=== PATIENT | male | born 1975 | race African-American/Black ===

== ENCOUNTER 2016-07-21 03:30 | Emergency (ER) | payer OTHER ==
[~2016-07-21] VITALS: Ht 182.9 cm; Wt 117.9 kg
[~2016-07-21 03:30] MED LIST: ACETAMINOPHEN325 M1 PO; ALBUTEROL INHAL17 GM IH; ALTACE5 M1 PO; AMLODIPINE BESY10 MG PO; AMOXICILLIN500 M1 PO; ASPIRIN EC81 M1 PO; ATIVAN1 MG PO; BACTRIM DS TAB1 EACH PO; CARVEDILOL3.125 MG; CEFDINIR300 MG PO; CIPROFLOXACIN500 M1 PO; CLARITIN10 MG; CLONIDINE HCL0.2 M2 PO; COLACE100 MG PO; COZAAR 50 MG TA50 M2 PO; DIPHENHYDRAMINE50 MG; FLEXERIL PO; HYDRALAZINE 2525 M1 PO; HYDRALAZINE 2525 MG PO; HYDROCHLOROTH12.5 MG PO; HYDROCHLOROTHIA25 M1 PO; IBUPROFEN 800800 M1 PO; IBUPROFEN 800800 MG PO; LISINOPRIL10 MG PO; LISINOPRIL20 MG; LISINOPRIL5 MG PO; LOPERAMIDE 2 MG2 M1 PO; LOPRESSOR100 M1 PO; LOPRESSOR50 PO; LORTABELXR PO; LOSARTAN POTAS100 MG PO; MECLIZINE 25 MG25 M1 PO; MUCINEX600 MG PO; NORCO 5-325 TA1 EACH PO; NORVASC 5 MG TAB5 MG PO; NORVASC10 MG PO; PENICILLIN VK500 MG PO; PHENADOZ25 MG RC; PREDNISONE 20 M20 MG PO; PREVACID 30MG C30 M1 PO; PROVENTIL HFA6.7 G1 INH; PYRIDIUM200 MG PO; RONDEC-DM SYRU120 ML PO; SALINE NASAL SP30 ML NS; TESSALON PERLE100 MG PO; TOPROL XL100 MG PO; TOPROL XL50 MG PO; VENTOLIN HFA 1818 GM INH; ZESTRIL20 MG PO; ZOCOR20 MG PO; ZOFRAN ODT4 MG PO; ZPAK PO; ZYRTEC10 M2 PO; [UNRECOGNIZED DRUG - REMARK]
[2016-07-21] MEDS ORDERED: AMOXICILLIN875 MG PO (04:36)
[2016-07-21] MEDS ORDERED: TRAMADOL 50 MG50 MG PO (04:36)
[2016-07-21 05:21] VITALS: BP 138/82
== END 2016-07-21 05:22 | disposition home or self-care (01) ==
LOC: ER 03:30
DX: J20.9 Acute bronchitis, unspecified (principal); K02.9 Dental caries, unspecified; I10 Essential (primary) hypertension; Z88.6 Allergy status to analgesic agent

== ENCOUNTER 2016-09-28 20:15 | Emergency (ER) | payer OTHER ==
[~2016-09-28] VITALS: Ht 182.9 cm; Wt 131.5 kg
[~2016-09-28 20:15] MED LIST changes: +AMOXICILLIN875 MG PO; +TRAMADOL 50 MG50 MG PO
[2016-09-28] MEDS ORDERED: PROMETHAZINE D480 ML GT (20:57)
[2016-09-28] MEDS ORDERED: MOBIC15 MG PO (20:57)
[2016-09-28] MEDS ORDERED: PENICILLIN V P500 MG PO (20:57)
[2016-09-28] MEDS ORDERED: PREDNISONE 20 M20 MG PO (20:57)
[2016-09-28] MEDS ORDERED: COZAAR 25 MG TA25 M1 (21:13)
[2016-09-28] MEDS ORDERED: NORVASC5 MG (21:13)
[2016-09-28 21:16] VITALS: BP 202/138
== END 2016-09-28 21:18 | disposition home or self-care (01) ==
LOC: ER 20:15
DX: J06.9 Acute upper respiratory infection, unspecified (principal); K08.89 Other specified disorders of teeth and supporting structures; I10 Essential (primary) hypertension; Z88.5 Allergy status to narcotic agent

== ENCOUNTER 2016-10-12 15:10 | Inpatient (IN) | payer OTHER ==
[~2016-10-12] VITALS: Ht 182.9 cm; Wt 149.2 kg
--- NOTE | ~2016-10-12 | HC ---
[facility] [place] [address] CONSULTATION Name: REHANA THOMAS Room #: 208-P ADM IN M.R.#: [id number] Admission: 10/12/16 Attend Phys: Zack Barron MD Discharge: Date of : 77 Report #: [id number] THIS REPORT FOR: //name// CC: FAM unknown Zack Barron DATE OF CONSULTATION: 10/13/2016. REASON FOR CONSULTATION: Hypertensive emergency. HISTORY OF PRESENT ILLNESS: This 40-year-old male has a known history of chronic hypertension. He has not felt well for some time. He saw Dr. Mtz several days ago when his blood pressure medications were altered due to progressive hypertension to include spironolactone and amlodipine. He developed increasing headache as well as chest tightness and shortness of breath. He ultimately presented to the Emergency Room for further evaluation and treatment. He denies chest pain, shortness of breath, productive cough or visual changes. PAST MEDICAL HISTORY: Remarkable for hypertension. The patient has longstanding significant obesity weighing as much as 360 pounds at one time, but now approximately 300 pounds. FAMILY HISTORY: Remarkable for hypertension. There is no history of renal difficulties. MEDICATIONS: On admission to the hospital include meloxicam, penicillin, hydralazine, losartan, amlodipine, spironolactone. ALLERGIES: Reported to CODEINE, HYDROCODONE and MORPHINE. PERSONAL AND SOCIAL HISTORY: The patient does not smoke. He does drink social weight. There is no history of substance abuse. REVIEW OF SYSTEMS: Remarkable for the absence of peripheral edema or rash. He denies joint swelling. He has had headaches. He denies epistaxis or visual change. He has had shortness of breath with a nonproductive cough. He denies hemoptysis. He denies palpitations. He denies nausea, vomiting, diarrhea or constipation. PHYSICAL EXAMINATION: GENERAL: Reveals a well-developed, well-nourished, obese, large man in no acute distress. VITAL SIGNS: Blood pressure 150/108, pulse 111, respirations 20, temperature 97.9. SKIN: Warm and dry. There is no rash or erythema noted. EXTREMITIES: There is no clubbing, cyanosis, edema or adenopathy. HEENT: The head is normocephalic and atraumatic. The sclerae are white. The [address] [address] CONSULTATION Name: REHANA THOMAS Room #: 208-P [facility] IN M.R.#: [id number] Admission: 10/12/16 Attend Phys: Zack Barron MD Discharge: Date of : 77 Report #: [id number] pharynx is benign. NECK: Supple. LUNGS: Navarro are grossly clear to percussion and auscultation. CARDIOVASCULAR: Reveals a regular rate and rhythm without rub. ABDOMEN: Obese, soft and nontender, without palpable mass or organomegaly. NEUROLOGIC: Reveals the patient to be alert and cooperative with a nonfocal examination. DIAGNOSTIC DATA: Available at this time include sodium 139, potassium 3.3, chloride 105, CO2 23, BUN 21, creatinine 2.1, glucose 101, and albumin 2.9. White blood cell count 12,200, hemoglobin 12.8, hematocrit 39.7, platelet count 255,000. Urinalysis is not available at the time of evaluation. ASSESSMENT: 1. Accelerated hypertension in the setting of longstanding hypertension. I believe this is hypertensive emergency superimposed on longstanding chronic hypertension. 2. Chronic kidney disease with acute component. 3. Obstructive sleep apnea. 4. Morbid obesity. PLAN: The patient needs urinalysis as well as urine for protein, creatinine, and sodium. Serology to include KARINA, ANCA and serum free light chains will be sent, but I doubt these will be revealing. Control of hypertension will be multiple drug recommend including diuretic, beta blockers and vasodilator. Initially, we will treat with amlodipine and carvedilol though he may well end up needing minoxidil treatment to gain adequate control of his blood pressure. Clearly he needs weight loss and dietary sodium restriction as an essential component if ought to gain control of his hypertension. I have had a lengthy discussion today with the patient about the critical nature of his blood pressure and renal issues with regard to their threat to his life and cardiovascular health. He seems to understand the gravity of this situation. Please see orders. <ELECTRONICALLY SIGNED> By: Tom Ferreira MD 10/16/16 1721 0530 0619 Tom Ferreira MD /nt
--- NOTE | ~2016-10-12 | EKG ---
[address] [address] ELECTROCARDIOGRAM REPORT Name: REHANA THOMAS Room #: 170-10 ADM IN M.R.#: [id number] Admission: 10/12/16 Attend Phys: Zack Barron MD Discharge: Date of : 77 Report #: [id number] THIS REPORT FOR: //name// [facility] ED Test Date: 2016-10-12 Test Time: 15:17:37 Pat Name: REHANA THOMAS Department: Room: 170 Gender: M Pharmacist Helper: MIKO : 1975 Requested By: Braulio Metz Order Number: [id number] MD: Jaiden Antonio Measurements Intervals [place] Rate: 122 P: 57 NH: 119 QRS: 11 QRSD: 88 T: 187 QT: 344 QTc: 490 Interpretive Statements Sinus tachycardia Left atrial enlargement LVH with secondary repolarization abnormality Borderline prolonged QT interval Baseline wander in lead(s) V2 Compared to ECG 03/13/2016 10:40:05 Left ventricular hypertrophy now present T-wave abnormality no longer present Electronically Signed On 10-12-2016 17:17:11 CDT by Jaiden Antonio [email or web address] <ELECTRONICALLY SIGNED> By: Jaiden Antonio MD 10/12/16 1717 1517 151 Jaiden Antonio MD /EPI
--- NOTE | ~2016-10-12 | 2DMMODE ---
[place] [address] [address] [place] [address] 2 D/M-MODE ECHOCARDIOGRAM Name: REHANA THOMAS Room #: 208-P ADM IN M.R.#: [id number] Admission: 10/12/16 Attend Phys: Jen Comer Discharge: Date of : 77 Date of Service: 10/15/16 0919 Report #: [id number] THIS REPORT FOR: //name// APPROVED REPORT Study performed: 10/15/2016 08:20:40 EXAM: Comprehensive 2D, Doppler, and color-flow Echocardiogram Patient Location: Bedside Room #: 208 Blood Pressure: 145/94 mmHg HR: 89 bpm Other Information Study Quality: Good Indications Hypertension/HDD 2D Dimensions RVDd: 39.50 mm LVEF(%): 55.13 (>50%) IVSd: 14.41 (7-11mm) LVOT Diam: 20.29 (18-24mm) LVDd: 50.09 mm PWd: 15.03 (7-11mm) Ascending Aorta: 31.96 mm LVDs: 35.68 (25-40mm) IVC: 18.00 mm Aortic Root: 29.82 mm Burgess's LVEF: 55.13 % Volumes Left Atrial Volume (Systole) Single Plane 4CH: 83.71 mL Single Plane 2CH: 55.69 mL LA ESV Index: 28.00 mL/m2 Aortic Valve AoV Peak Rodríguez.: 1.21 m/s AO Peak Gr.: 5.82 mmHg LV Max P.01 mmHg LV Max: 0.87 m/s Mitral Valve E/A Ratio: 2.4 MV Decel. Time: 150.99 ms MV E Max Rodríguez.: 1.30 m/s MV A Rodríguez.: 0.55 m/s [facility] [place] [address] 2 D/M-MODE ECHOCARDIOGRAM Name: REHANA THOMAS Room #: 208-P [facility] IN .R.#: [id number] Admission: 10/12/16 Attend Phys: Jne Comer Discharge: Date of : 77 Date of Service: 10/15/16 0919 Report #: [id number] MV PHT: 43.79 ms Pulmonary Valve PV Peak Rodríguez.: 1.00 m/s PV Peak Gr.: 3.99 mmHg Pulmonary Vein P Vein S: 44.6 m/s P Vein D: 38.7 m/s P Vein A Dur.: 17.9 m/s PVa Duration: 88 Tricuspid Valve TR Peak Rodríguez.: 2.98 m/s RAP Estimate: 5.00 mmHg TR Peak Gr.: 35.44 mmHg Left Ventricle The left ventricle is normal size. There is normal LV segmental wall motion. Mild to moderate concentric left ventricular hypertrophy. The left ventricular systolic function is normal. The left ventricular ejection fraction is within the normal range. LVEF is 55-60%. The left ventricular diastolic function is normal. Right Ventricle The right ventricle is normal size. The right ventricular systolic function is normal. Atria The left atrium size is normal. The right atrium size is normal. Aortic Valve The aortic valve is normal in structure. No aortic regurgitation is present. There is no aortic valvular stenosis. Mitral Valve The mitral valve is normal in structure. Moderate mitral regurgitation. No evidence of mitral valve stenosis. Tricuspid Valve The tricuspid valve is normal in structure. There is trace tricuspid regurgitation. The right atrial pressure is estimated at 5 mmHg. There is mild pulmonary hypertension. The estimated PAP was 40 mmHg. Pulmonic Valve The pulmonary valve is normal in structure. There is no pulmonic valvular regurgitation. [address] [address] 2 D/M-MODE ECHOCARDIOGRAM Name: REHANA THOMAS Room #: 208-P [facility] IN [facility]#: [id number] Admission: 10/12/16 Attend Phys: Jen Comer Discharge: Date of : 77 Date of Service: 10/15/16 0919 Report #: [id number] [employer]els The aortic root is normal in size. IVC is normal in size and collapses >50% with inspiration. Pericardium There is no pericardial effusion. <Conclusion> The left ventricular systolic function is normal. There is normal LV segmental wall motion. LVEF is 55-60%. The aortic valve is normal in structure. No aortic valvular stenosis or insufficiency. The mitral valve is normal in structure. Moderate mitral regurgitation. There is mild pulmonary hypertension. The estimated PAP was 40 mmHg. There is no pericardial effusion. <ELECTRONICALLY SIGNED> By: John Paul Fontanez MD, FACC 10/15/16918 8 8 John Paul Fontanez MD, FACC /INF
--- NOTE | ~2016-10-12 | H ---
[facility] [place] [address] HISTORY AND PHYSICAL Name: REHANA THOMAS Room #: 208-P ADM IN M.R.#: [id number] Admission: 10/12/16 Attend Phys: Zack Barron MD Discharge: Date of : 77 Report #: [id number] THIS REPORT FOR: //name// CC: FAM unknown Zack Barron DATE OF ADMISSION: 10/12/2016. CHIEF COMPLAINT: Shortness of breath. HISTORY OF PRESENT ILLNESS: This patient is a 40 years old male. His shortness of breath is going on for about a month. He was seen in the ER about a week ago for that and diagnosed with bronchitis, was given a script for antibiotics, has been doing that. He said he is not feeling better, but continued to have symptoms. There are some activities, even going up a flight of stairs makes him short of breath, questionable history of PND, orthopnea. Denied any history of any CHF in the past, but he has hypertension, which is uncontrolled and he said, which is going on for a long time. Has a known history of obstructive sleep apnea, used CPAP at home. ER workup has a positive D-dimer and his chest x-ray mild failure of finding certainly cardiomegaly. This could be also ongoing for hypertensive cardiomyopathy, but he is also sinus tachy, heart rate 120s and sinus tachy and blood pressure is high as described and PE workup is still pending. V/Q scan is ordered by the ER physician, which is pending. The patient is in the ER, seen and examined there and the V/Q scan is pending. PAST MEDICAL HISTORY: I reviewed all that. He has hypertension and obsessive sleep apnea, obesity, uncontrolled hypertension. No history of DVT or PE and no history of coronary artery disease or CHF in the past. SOCIAL HISTORY: No smoking, no alcohol, no drugs. He is a social drinker. Does not drink everyday. ALLERGIES: CODEINE, HYDROMORPHONE and MORPHINE. About 2 years ago, but documented . MEDICATIONS: List is reviewed. He is taking Norvasc and he does tell me he has had meloxicam [id number] and he is on a penicillin VK that was prescribed about a week ago, prednisone. REVIEW OF SYSTEMS: I reviewed all the review of systems he had described in HPI. Other specifically, shortness of breath at this time. No easy bleeding, bruising. No history of DVT, PE. Denied any history of coronary artery disease. No focal weakness, no change in mental status. No cough, congestion, fever or shortness of breath mainly as described. Questionable PND, orthopnea. Also, mentions sometimes chest tightness, no pain or anything, denied any relation of the chest tightness with the physical activity or anything like that. I have never seen any manager business intelligence before. No history of [facility] [address] [place] [address] HISTORY AND PHYSICAL Name: REHANA THOMAS Room #: 208-P [facility] IN M.R.#: [id number] Admission: 10/12/16 Attend Phys: Zack Barron MD Discharge: Date of : 77 Report #: [id number] diabetes and he is not a smoker. No nausea, vomiting or diarrhea. Denied any thyroid problem, no losing weight, appetite and no history of cancer and the rest of the review of systems are described in HPI, otherwise are reviewed as negative. PHYSICAL EXAMINATION: VITAL SIGNS: His blood pressure last one is a systolic of 177/125, pulse rate is 123, sinus tachycardic. Respiratory is 38, which is documented. GENERAL: Looks very comfortable. O2 sat is 90. He is not struggling. He is not having any hypoxia. Exam [place] he is sitting in the bed, talking, looking comfortable, talking and answering all the questions. HEENT: Pupils equally round and reactive to light. Extraocular muscle intact. Moist mucous membranes. NECK: Supple. I do not see any JVD. No lymphadenopathy. CHEST: He does have a good breath sound, do not hear really crackles. Certainly, he is obese. Also, there is kind of limited exam part also. CARDIOVASCULAR: S1, S2. Sinus tachy. ABDOMEN: Soft, obese. Bowel sounds present. EXTREMITIES: Maybe trace edema really do not see much edema, maybe trace. Pulses are palpable 2+ bilaterally. DERMATOLOGY: Warm, dry skin. NEURO: He is moving all extremities. No focal weakness. PSYCHIATRIC: He is awake and alert. He is looking comfortable, although numbers are looking he does not look in a distress either. Respiratory rate is 30s. He does not look . He was able to complete the full sentence. LABORATORY DATA: His labs were done in the ER. D-dimer was very high 3.8. CBC: White count 12.2, H and H 12.8 and 39.0 and platelets 255. Chemistry: Sodium 138, potassium 3.3, chloride 104, bicarbonate 22, BUN 27, creatinine 2.5, GFR is about 35. This was part stage III at least. Troponin 0.08. His BNP is 2464 and chest x-ray, mild finding. Troponin was slightly up. ASSESSMENT AND PLAN: 1. Uncontrolled hypertension. 2. Shortness of breath, possible pulmonary embolism. 3. Vedpf-sfsuqw-ltwkjtc renal failure, could possibly be uncontrolled hypertension. 4. Mild leukocytosis. 5. Mild hypokalemia. 6. Mildly elevated troponin. 7. High BNP. 8. Obesity. 9. Obstructive sleep apnea. 10. Social drinker. 11. Uncontrolled hypertension. [facility] [place] [address] [address] HISTORY AND PHYSICAL Name: MARTHAREHANA Room #: 208-P ADM IN M.Romeo.#: [id number] Admission: 10/12/16 Attend Phys: Zakc Barron MD Discharge: Date of : 77 Report #: [id number] PLAN: We will admit to the CCU and a VQ scan. . With his renal failure, heparin would be a better choice than Lovenox to start on that. Discussed with the ER doctor if this is positive. Then they are going to start the heparin drip there. Did discuss with the patient and his family also at the bedside and okay to proceed with the plan of treatment going to start on control his blood pressure, give him hydralazine. Certainly need to go with the beta haley and echo, serial cardiac enzymes, cardiology consult and certainly need more cardiac workup and regarding his renal, this could be chronic. Also, a renal ultrasound to rule out any obstruction, hydronephrosis and will get Nephrology consult. His potassium is 3.1, we will replace that. Check labs in the morning. He is going to be in the hospital certainly more than 2 nights. Continue to use his CPAP while in the hospital, keep him inpatient. <ELECTRONICALLY SIGNED> By: Zack Barron MD 10/15/16 1352 1716 44 Zack Barron MD /nt
--- NOTE | ~2016-10-12 | D ---
[facility] [place] [address] DISCHARGE SUMMARY Name: REHANA THOMAS Room #: 208-P [facility] IN M.R.#: [id number] Admission: 10/12/16 Attend Phys: Zack Barron MD Discharge: 10/17/16 Date of : 77 Report #: [id number] THIS REPORT FOR: //name// CC: FAM unknown Zack Barron DATE OF SERVICE: 10/17/2016 DATE OF ADMISSION: 10/12/2016. DATE OF DISCHARGE: 10/17/2016. DISCHARGE DIAGNOSES: 1. Uncontrolled hypertension, now improved. 2. Acute kidney injury on chronic kidney disease, stage 3, now improved. 3. Obstructive sleep apnea. 4. Morbid obesity. 5. Pulmonary hypertension. CONSULTS: Cardiology and renal. PROCEDURES: None, although he did have an echocardiogram that showed an ejection fraction of 55%, with a normal diastolic function with moderate mitral regurgitation and a PA pressure of 40 mmHg. HOSPITAL COURSE: The patient is a 40-year-old male with a history of hypertension; obstructive sleep apnea, on CPAP; morbid obesity and poorly controlled hypertension, presented to the ER secondary to shortness of breath. Please see details of the admission dictated by Dr. Zack Barron on 10/12. The patient had significantly elevated blood pressures. He was felt to have some heart failure secondary to hypertensive urgency and emergency. Initially, he also had some renal issues. He was admitted and cardiology and renal were consulted. For details of the hospital course, please see [facility], as I assumed his care on the last day. He was appropriately diuresed and his blood pressure medications were adjusted and over the course of several days, his blood pressure issues have come under good control. His troponin was slightly elevated at 0.08, but his echo showed no regional motion abnormalities. After a few days, his symptoms improved and he was cleared for discharge as his blood pressure was also under better control and his renal issues also improved as well, with a creatinine of 2.3 on discharge, this was close to his baseline. Additional studies included a CT scan that showed no perfusion defects; renal ultrasound that showed cholelithiasis, but no cholecystitis; a venous Doppler that was negative for DVT and chest x-ray that showed mild pulmonary edema and again, his symptoms improved with appropriate diuresis. On the day of discharge, he was very anxious to go home. Nurses report no other problems. He [address] [address] DISCHARGE SUMMARY Name: REHANA THOMAS Room #: 208-P [facility] IN [facility]#: [id number] Admission: 10/12/16 Attend Phys: Zack Barron MD Discharge: 10/17/16 Date of : 77 Report #: [id number] was also cleared by consultants. DISCHARGE DISPOSITION: To home. DISCHARGE PHYSICAL EXAMINATION: VITAL SIGNS: Temperature of 97, pulse of 90, blood pressure 139/96 and O2 sats 100% on room air. GENERAL: He is awake, alert, answering questions appropriately, in no acute respiratory distress. HEENT: Normocephalic, atraumatic. Pupils equal. NECK: Supple. CARDIOVASCULAR: Regular rate and rhythm. No murmurs. LUNGS: Clear to auscultation bilaterally. No crackles or wheeze. ABDOMEN: Soft. No distention or tenderness. EXTREMITIES: No edema. NEUROLOGIC: Nonfocal. DISCHARGE MEDICATIONS: The patient went home on Norvasc 5 daily, Trandate 600 b.i.d., Zestril 20 daily, Aldactone 50 b.i.d. DIET: Low-sodium food restricted. Cardiac diet. ACTIVITY: As tolerated. FOLLOWUP: Follow up with primary care in 1 week and repeat labs. Follow up with renal as instructed. Follow up with cardiology as instructed and to seek immediate medical attention if symptoms worsen, recur or if he has any significant medical concerns. Discharge plan took 37 minutes. I explained to him the discharge diagnoses, treatment plan and appropriate followup in detail. He had no further questions. By: 1202 1518 My Suresh Alfonso MD /nt
--- NOTE | ~2016-10-12 | HC ---
[facility] [place] [address] CONSULTATION Name: REHANA THOMAS Room #: 208-P ADM IN M.R.#: [id number] Admission: 10/12/16 Attend Phys: Zack Barron MD Discharge: Date of : 77 Report #: [id number] THIS REPORT FOR: //name// CC: FAM unknown Zack Barron DATE OF SERVICE: 10/13/2016 INDICATION: Dyspnea and chest pain. HISTORY OF PRESENT ILLNESS: This is a 40-year-old gentleman with a history of uncontrolled hypertension, chronic renal insufficiency and obstructive sleep apnea. He reports playing basketball the other day. However, that evening while walking up stairs, he developed shortness of breath. He also reports a mild discomfort in the substernal area, which he believes is related to reflux disease. There is no history of fever, chills or congestion. In the ER, he was evaluated and found to have an elevated blood pressure. The patient has been given blood pressure medications and diuretic therapy. He feels improved from a respiratory standpoint. PAST MEDICAL HISTORY: Hypertension, chronic renal insufficiency, obstructive sleep apnea, obesity. ALLERGIES: To CODEINE, MORPHINE and HYDROCODONE. MEDICATIONS AT HOME: Include prednisone, penicillin, hydralazine 25 mg 3 times a day, losartan and amlodipine. SOCIAL HISTORY: Denies tobacco use. FAMILY HISTORY: Negative for premature CAD. REVIEW OF SYSTEMS: A full 10-point review of systems was performed. Only the pertinent positives and negatives are described in the HPI. PHYSICAL EXAMINATION: VITAL SIGNS: Blood pressure is 150s-180s/100, heart rate of 120 beats per minute. GENERAL APPEARANCE: This is an overweight male in no acute respiratory distress. HEAD AND EYES: Normocephalic. Sclerae are anicteric. ENT: Oral mucosa moist. NECK: Supple. LUNGS: Diminished breath sounds at the bases. CARDIAC: Regular rate and rhythm, S1, S2 positive. ABDOMEN: Soft, nontender. [facility] [address] [place] [address] CONSULTATION Name: REHANA THOMAS Room #: 208-[facility] IN ..#: [id number] Admission: 10/12/16 Attend Phys: Zack Barron MD Discharge: Date of : 77 Report #: [id number] EXTREMITIES: No major joint deformities, edema. LABORATORY VALUES: Peak troponin level is 0.08. Sodium is 139, creatinine is 2.1. White count 12.2, hemoglobin is 12.8. ASSESSMENT AND PLAN: 1. Congestive heart failure, he had an echo 2 years ago that revealed normal left ventricular systolic function. We will need to repeat echo to assess the left ventricular function. Unclear if this is diastolic or combined with systolic heart failure from untreated hypertension. Continue with diuretic therapy. 2. Minimal troponin elevation in the indeterminant range. I do not think this is ischemic. May be a slight elevation from underlying heart failure. 3. Hypertension/uncontrolled, we will need management of blood pressure medications as per renal. 4. Chronic renal insufficiency, follow the creatinine level. 5. Obstructive sleep apnea. Thank you for allowing me to participate in the care of your patient. <ELECTRONICALLY SIGNED> By: Jaiden Antonio MD 10/13/16 1722 1031 1247 Jaiden Antonio MD /nt
--- NOTE | ~2016-10-12 | H ---
[facility] [place] [address] HISTORY AND PHYSICAL Name: REHANA THOMAS Room #: 208-P ADM IN M.R.#: [id number] Admission: 10/12/16 Attend Phys: Zack Barron MD Discharge: Date of : 77 Report #: [id number] THIS REPORT FOR: //name// CC: FAM unknown Zack Barron DATE OF SERVICE: 10/12/2016 He is a 40-year-old male. DATE OF ADMISSION: 10/12/2016 CHIEF COMPLAINT: Shortness of breath. HISTORY OF PRESENT ILLNESS: This patient he was seen about a week ago in the ER that time, he was diagnosed with bronchitis, given a script for antibiotics and he was sent home, came back with shortness of breath going on for about a month, progressively getting worse and today, he said basically he wanted to check out what is going on, not getting better. There is no significant change from what is going on over a month, sometimes he had a chest tightness. Denied any pain or anything. He denied any coronary artery disease in the past or anything. ER workup, he had a D-dimer positive. Chest x-ray, mild, failure of finding cardiomegaly. He does have multiple risk factors including obesity, obstructive sleep apnea, uncontrolled hypertension, could possibly be all going from the hypertensive cardiomyopathy. His D-dimer was elevated. A V/Q scan is ordered from the ER, his heart rate is 120s, sinus tachy and he does not look like his saturations have been 97% room air, could possibly have a PE. The workup is still pending and a VQ scan that was ordered from the ER is not done yet. The patient is still in the ER, should be going to the V/Q scan and then after that, will be transferred to the CCU. No fever, no questionable PND, orthopnea. He said once he goes up one flight of stairs, it makes him short of breath, which is all new within the last month. By: [id number] Zack Barron MD /nt
[~2016-10-12 15:10] MED LIST changes: +COZAAR 25 MG TA25 M1; +MOBIC15 MG PO; +NORVASC5 MG; +PENICILLIN V P500 MG PO; +PROMETHAZINE D480 ML GT
[2016-10-12 15:12] VITALS: BP 206/151
[2016-10-12 15:59] LABS: HEMATOCRIT 39.7 % (42.0-52.0); HEMOGLOBIN 12.8 gm/dL (14.0-18.0); MCHC 32.2 g/dL (28.0-37.0); MCV 80.7 fL (80.0-100.0); PLATELET COUNT 255 thou/uL (150-400); RBC 4.92 mil/uL (4.50-6.00); RDW 16.4 % (10.5-14.5); WBC 12.2 thou/uL (4.0-11.0)
[2016-10-12 16:00] LABS: MANUAL DIFF YES
[2016-10-12 16:17] LABS: ABSOLUTE NEUTROPHILS 10.6 thou/uL (1.4-8.2); ANISOCYTOSIS 1+; TOTAL CELL COUNT 100
[2016-10-12 16:22] LABS: CALCIUM 8.9 mg/dL (8.5-10.1); CREATININE 2.5 mg/dL (0.7-1.3); POTASSIUM 3.3 mmol/L (3.5-5.1); TROPONIN-I 0.08 ng/mL (<0.04-0.07)
[2016-10-12 17:27] VITALS: BP 176/110
[2016-10-12 18:20] VITALS: BP 171/125
[2016-10-12 19:47] VITALS: BP 190/142
[2016-10-12 23:49] VITALS: BP 158/120
[2016-10-13 03:15] VITALS: BP 181/138
[2016-10-13 03:33] LABS: ALBUMIN 2.9 g/dL (3.4-5.0); CALCIUM 8.1 mg/dL (8.5-10.1); CREATININE 2.1 mg/dL (0.7-1.3); POTASSIUM 3.3 mmol/L (3.5-5.1); TOTAL BILIRUBIN 0.6 mg/dL (<0.1-1.0); TOTAL PROTEIN 6.8 g/dL (6.4-8.2); TROPONIN-I 0.07 ng/mL (<0.04-0.07)
[2016-10-13 07:20] VITALS: BP 177/136
[2016-10-13 11:20] VITALS: BP 154/116
[2016-10-13 14:28] LABS: URINE BILIRUBIN NEGATIVE (Negative); URINE BLOOD NEGATIVE (Negative); URINE COLOR YELLOW; URINE GLUCOSE-RANDOM* TRACE (Negative); URINE KETONES NEGATIVE (Negative); URINE NITRITE NEGATIVE (Negative); URINE PROTEIN (DIPSTICK) 1+ (Negative); URINE SPECIFIC GRAVITY >= 1.030 (1.003-1.035); URINE UROBILINOGEN 0.2 E.U./dl (0.2-1.0)
[2016-10-13 14:37] LABS: SQUAMOUS None Seen /LPF (0-3); URINE WBC 0-5 Rare /HPF (0-5)
[2016-10-13 14:38] LABS: BACTERIA 1-9 Few /HPF (None Seen); CASTS None Seen /LPF (None Seen); CRYSTALS None Seen /LPF (None Seen); URINE RBC None Seen /HPF (0-2)
[2016-10-13 15:40] VITALS: BP 162/121
[2016-10-13 19:40] VITALS: BP 182/131
[2016-10-13 23:52] VITALS: BP 141/98
[2016-10-14 04:20] LABS: ALBUMIN 2.9 g/dL (3.4-5.0); CREATININE 2.2 mg/dL (0.7-1.3); MAGNESIUM 1.9 mg/dL (1.8-2.4); POTASSIUM 3.3 mmol/L (3.5-5.1)
[2016-10-14 04:24] VITALS: BP 150/96
[2016-10-14 07:07] LABS: URINE PROTEIN-RANDOM* 44.4 mg/dL (Not Estab.)
[2016-10-14 07:34] VITALS: BP 148/110
[2016-10-14 08:08] LABS: URINE CREATININE-RANDOM* 295.2 mg/dL (Not Estab.)
[2016-10-14 11:50] VITALS: BP 141/101
[2016-10-14 16:30] VITALS: BP 146/97
[2016-10-14 20:07] VITALS: BP 159/110
[2016-10-14 23:34] VITALS: BP 141/88
[2016-10-15 03:18] LABS: CALCIUM 8.1 mg/dL (8.5-10.1); CREATININE 2.2 mg/dL (0.7-1.3); PHOSPHORUS 4.2 mg/dL (2.5-4.9); POTASSIUM 3.2 mmol/L (3.5-5.1)
[2016-10-15 04:18] VITALS: BP 145/94
[2016-10-15 07:05] VITALS: BP 176/128
[2016-10-15 11:15] VITALS: BP 152/106
[2016-10-15 13:08] LABS: KAPPA/LAMBDA RATIO 1.35 (0.26-1.65); LAMBDA FREE LIGHT CHAINS 19.33 mg/L (5.71-26.30)
[2016-10-15 16:25] VITALS: BP 166/122
[2016-10-15 19:55] VITALS: BP 155/107
[2016-10-15 23:47] VITALS: BP 143/99
[2016-10-16 03:27] VITALS: BP 163/115
[2016-10-16 03:49] LABS: ALBUMIN 3.3 g/dL (3.4-5.0); CREATININE 1.9 mg/dL (0.7-1.3); PHOSPHORUS 3.4 mg/dL (2.5-4.9); POTASSIUM 3.5 mmol/L (3.5-5.1)
[2016-10-16 08:01] VITALS: BP 115/118; BP 157/113
[2016-10-16 12:14] VITALS: BP 114/73
[2016-10-16 16:41] VITALS: BP 136/96
[2016-10-16 19:27] VITALS: BP 150/109
[2016-10-17 03:23] VITALS: BP 135/99
[2016-10-17 03:44] LABS: ALBUMIN 3.1 g/dL (3.4-5.0); CALCIUM 8.9 mg/dL (8.5-10.1); CREATININE 2.3 mg/dL (0.7-1.3); PHOSPHORUS 3.7 mg/dL (2.5-4.9); POTASSIUM 3.8 mmol/L (3.5-5.1)
[2016-10-17 09:11] VITALS: BP 139/96
[2016-10-17] MEDS ORDERED: LISINOPRIL20 MG PO (10:04)
[2016-10-17] MEDS ORDERED: LABETALOL HCL200 MG PO (10:04)
[2016-10-17] MEDS ORDERED: ALDACTONE25 MG PO (10:04)
[2016-10-17 10:23] VITALS: BP 139/96
[2016-10-17 10:47] VITALS: BP 139/96
[2016-10-17 17:10] LABS: c-ANCA <1:20 titer (Neg:<1:20); p-ANCA <1:20 titer (Neg:<1:20)
== END 2016-10-17 10:48 | disposition home or self-care (01) | DRG 292 ==
LOC: ER 15:10 → 2N 16:45 → EROBS 16:45 → 2N 17:58
PROVIDERS: Family Medicine; Hospitalist; Internal Medicine Nephrology; Nurse Practitioner
DX: I13.0 Hypertensive heart and chronic kidney disease with heart failure and stage 1 through stage 4 chronic kidney disease, or unspecified chronic kidney disease (principal); Z68.42 Body mass index [BMI] 45.0-49.9, adult; N17.9 Acute kidney failure, unspecified; I42.9 Cardiomyopathy, unspecified; G47.33 Obstructive sleep apnea (adult) (pediatric); I16.0 Hypertensive urgency; E87.6 Hypokalemia; I50.9 Heart failure, unspecified; D72.829 Elevated white blood cell count, unspecified; E66.01 Morbid (severe) obesity due to excess calories; N18.3 Chronic kidney disease, stage 3 (moderate); I27.2 Other secondary pulmonary hypertension; Z79.899 Other long term (current) drug therapy; Z88.6 Allergy status to analgesic agent; Z82.49 Family history of ischemic heart disease and other diseases of the circulatory system
CPT/HCPCS: 10194

== ENCOUNTER 2016-11-01 19:43 | Emergency (ER) | payer OTHER ==
[~2016-11-01] VITALS: Ht 182.9 cm; Wt 127.0 kg
[~2016-11-01 19:43] MED LIST changes: +ALDACTONE25 MG PO; +LABETALOL HCL200 MG PO; +LISINOPRIL20 MG PO
[2016-11-01 20:56] LABS: HEMATOCRIT 38.8 % (42.0-52.0); HEMOGLOBIN 12.9 gm/dL (14.0-18.0); MCH 26.6 pg (26.0-34.0); MCHC 33.3 g/dL (28.0-37.0); MCV 79.9 fL (80.0-100.0); PLATELET COUNT 318 thou/uL (150-400); RBC 4.86 mil/uL (4.50-6.00); RDW 16.1 % (10.5-14.5); WBC 6.1 thou/uL (4.0-11.0)
[2016-11-01 20:58] LABS: MANUAL DIFF YES
[2016-11-01 21:07] LABS: CALCIUM 9.2 mg/dL (8.5-10.1); CREATININE 2.7 mg/dL (0.7-1.3); POTASSIUM 5.4 mmol/L (3.5-5.1)
[2016-11-01 21:25] LABS: ABSOLUTE NEUTROPHILS 2.8 thou/uL (1.4-8.2); ANISOCYTOSIS 3+; ATYPICAL LYMPHS 2 %; MACROCYTES 1+; MICROCYTES 2+; TOTAL CELL COUNT 100
[2016-11-01 22:45] VITALS: BP 198/120
[2016-11-01] MEDS ORDERED: IBUPROFEN 600600 M1 PO (22:51)
[2016-11-01] MEDS ORDERED: KEFLEX500 MG PO (22:51)
== END 2016-11-01 23:00 | disposition home or self-care (01) ==
LOC: ER 19:43
PROVIDERS: Nurse Practitioner
DX: R25.2 Cramp and spasm (principal); K04.7 Periapical abscess without sinus; I10 Essential (primary) hypertension; K21.9 Gastro-esophageal reflux disease without esophagitis; Z88.5 Allergy status to narcotic agent

== ENCOUNTER 2019-07-06 18:29 | Emergency (ER) | payer OTHER ==
[~2019-07-06] VITALS: Ht 182.9 cm; Wt 136.1 kg
[~2019-07-06 18:29] MED LIST changes: +IBUPROFEN 600600 M1 PO; +KEFLEX500 MG PO
[2019-07-06 19:01] LABS: URINE BILIRUBIN NEGATIVE (Negative); URINE BLOOD TRACE (Negative); URINE CLARITY CLEAR; URINE COLOR YELLOW; URINE GLUCOSE-RANDOM* NEGATIVE (Negative); URINE KETONES NEGATIVE (Negative); URINE LEUKOCYTES-REFLEX TRACE (Negative); URINE NITRITE-REFLEX NEGATIVE (Negative); URINE PROTEIN (DIPSTICK) NEGATIVE (Negative); URINE SPECIFIC GRAVITY 1.015 (1.005-1.035); URINE UROBILINOGEN 0.2 E.U./dl (0.2-1.0)
[2019-07-06 20:13] LABS: HEMATOCRIT 40.5 % (42.0-52.0); HEMOGLOBIN 13.2 gm/dL (14.0-18.0); MCH 27.2 pg (26.0-34.0); MCHC 32.7 g/dL (28.0-37.0); MCV 83.4 fL (80.0-100.0); PLATELET COUNT 324 thou/uL (150-400); RBC 4.86 mil/uL (4.50-6.00); RDW 14.9 % (10.5-14.5); WBC 8.4 thou/uL (4.0-11.0)
[2019-07-06 20:14] LABS: CREATININE 2.6 mg/dL (0.7-1.3); POTASSIUM 3.5 mmol/L (3.5-5.1)
[2019-07-06 21:42] LABS: ABSOLUTE NEUTROPHILS 5.9 thou/uL (1.4-8.2); ANISOCYTOSIS 1+; PLATELET ESTIMATE NORMAL; POIKILOCYTOSIS 1+
[2019-07-06] MEDS ORDERED: KEFLEX500 M1 PO ×2 (22:16→22:23)
[2019-07-06] MEDS ORDERED: PYRIDIUM100 M1 PO ×2 (22:16→22:23)
[2019-07-06 22:19] VITALS: BP 150/102
== END 2019-07-06 22:45 | disposition home or self-care (01) ==
LOC: ER 18:29
PROVIDERS: Emergency Medicine; Physician Assistant
DX: R30.0 Dysuria (principal); R31.29 Other microscopic hematuria; K08.89 Other specified disorders of teeth and supporting structures; I10 Essential (primary) hypertension; Z88.5 Allergy status to narcotic agent